=== PATIENT | female | born 1995 | race Caucasian/White ===

== ENCOUNTER 2023-12-27 16:14 | Outpatient (CLI) | payer MEDICAID, SELFPAY ==
--- NOTE | 2023-12-27 16:20 | US_ITS ---
PROCEDURE: US OB <= 14 WEEKS FETUS CLINICAL INDICATION: Dates COMPARISON: No exams were available for comparison FINDINGS: Transvaginal sonographic images of the pelvis were obtained. From her last menstrual period she is 6weeks 4days. There are 4 separate gestational sacs, each with a viable fetus. Sac A: 6.4 mm CRL, yolk sac 4.3 mm, heart rate 117 BPM, 6 weeks 4 days. Sac B: 4.9 mm CRL, yolk sac 3.6 mm, heart rate 112 BPM, 6 weeks 2 days. Sacs C: 5.06 mm CRL, yolk sac 4.7 mm, heart rate 120 BPM, 6 weeks 2 days. Sac D: 6.14 mm CRL, yolk sac 4.9 mm, heart rate 115 BPM, 6 weeks 4 days The right ovary is seen and appears normal. It measures 4.9 cm x 2.3 cm x 2.4 cm. There are multiple small peripheral follicles within the right ovary. The left ovary is seen and appears normal. It measures 4.0 cm x 3.9 cm x 2.7 cm. There appears to be a corpus luteum in the left ovary. There are multiple small peripheral follicles. There is no fluid in the cul-de-sac. IMPRESSION: 1. There are 4 viable, separate fetuses within the uterine cavity. 2. Each sac contains a viable fetus with heart rate activity. 3. They measure between 6 weeks 2 days and 6 weeks 4 days in size. 4. Both ovaries are seen and appear normal. A corpus luteum is seen on the left ovary. 5. No fluid in the cul-de-sac. Dictated by: Jordon Vincent MD 12/28/2023 07:29 Jordon Vincent MD in OV 12/28/2023 07:29
[2023-12-31 21:09] LABS: Neisseria gonorrhoeae, NAA Negative (Negative)
== END 2023-12-27 23:59 | disposition home or self-care (01) ==
LOC: LAB 16:23
PROVIDERS: PCP Obstetrics & Gynecology; Visit Provider Obstetrics & Gynecology
DX: Z34.90 Encounter for supervision of normal pregnancy, unspecified, unspecified trimester (principal)
CPT/HCPCS: 76801; 87086; 87491; 87591

== ENCOUNTER 2024-04-09 12:29 | Outpatient (CLI) | payer MEDICAID, SELFPAY | END 2024-04-09 23:59 | disposition home or self-care (01) | DX: Z53.20 Procedure and treatment not carried out because of patient's decision for unspecified reasons (principal) | CPT/HCPCS: 36415 ==

== ENCOUNTER 2024-07-02 11:58 | Day surgery (SDC) | payer MEDICAID, SELFPAY ==
[2024-06-30 15:29] VITALS: BMI 30.9
[2024-07-02] VITALS (10 sets, daily range): BP systolic 126–150; BP diastolic 84–98; PULSE 90–120; RESP 18; TEMP 36.4–36.6; O2SAT 97–100
--- NOTE | 2024-07-02 12:52 | SUR.PREOP ---
1243- this RN did a preoperative assessment of the patient before taking her back to the OR. When verifying allergies, patient stated she has an allergy to cephalexin. Dr Carl notified since Ancef was ordered for preop antibiotic and antibiotics being reviewed by Dr Carl since patient is 33 weeks .
[2024-07-02] MEDS: CLINDAMYCIN PHOSPHATE/D5W 600 MG/50 ML PIGGYBACK 100 MG IV (13:15)
--- NOTE | 2024-07-02 13:45 | P.OP_ITS ---
Date of procedure: 07/02/24 Pre-op Diagnosis:: Soft tissue mass left hand palm Post-op Diagnosis:: Same suspected pyogenic granuloma Procedure performed:: Excision soft tissue mass 2 cm x 1 cm left palm Surgeon:: Prince Carl DO Ssis Ssrs Developer(s):: Driss LAWRENCE Anesthesia: other (walant) Estimated blood loss (mL): 0 Operative findings:: See dictation Operative note:: Patient was identified preoperatively. Left hand was marked with a yes and my initials. Operative timeout was performed and a local anesthetic block with 1% lidocaine with epinephrine was performed in preop area. Patient tolerated the block very well. We allowed the block set for 20 minutes. Then she is taken the operating room. In the operating room the left upper extremity was prepped and draped normal sterile fashion. Once prepped and draped final operative timeout performed to identify proper patient procedure and extremity. Everyone involved in the case agreed. There is no counter indications to beginning. Patient did receive preoperative antibiotics clindamycin There was a large granulated mass in the palmar aspect of the left hand. 2 cm x 1 cm. Electrocautery with bipolar was utilized to cauterize the base of the soft tissue mass and the soft tissue mass was removed and taken to specimen. Irrigation of the wounds performed. Then skin was closed with nylon stitch in interrupted fashion. Sterile hand dressing placed. Patient was awake throughout the entire procedure tolerated procedure well. Condition: stable Disposition: PACU Complications:: None apparent
== END 2024-07-02 14:00 | disposition home or self-care (01) ==
PROVIDERS: Visit Provider Orthopaedic Surgery
PROC: (CPT 26111; principal; 2024-07-02 12:30)
DX: R22.32 Localized swelling, mass and lump, left upper limb (principal)
CPT/HCPCS: 26111; J0736